=== PATIENT | male | born 1975 | race Two or more races ===

== ENCOUNTER 2024-05-06 14:05 | Emergency (ER) | payer OTHER ==
[~2024-05-06] VITALS: Ht 180.3 cm; Wt 93.0 kg
[2024-05-06] MEDS ORDERED: KETOROLAC TROMETHAMINE 60 MG VIAL IM STA (15:30)
== END 2024-05-06 18:57 | disposition home or self-care (01) ==
LOC: ER 14:07
DX: M75.32 Calcific tendinitis of left shoulder (principal)